=== PATIENT | female | born 1955 | race Caucasian/White ===

== ENCOUNTER 2017-03-01 10:08 | Emergency (ER) | payer BC ==
--- NOTE | 2017-03-01 10:43 | XRAY Preliminary Report ---
Exam: XR CHEST 2 VIEW PA/LAT IMPRESSION: No acute abnormality of the chest. [facility] SITE ID: [id number]
--- NOTE | 2017-03-01 10:46 | XRAY Report ---
EXAM: CHEST RADIOGRAPHY EXAM DATE: 03/01/2017 10:28 AM. CLINICAL HISTORY: Cough, sob. COMPARISON: None. TECHNIQUE: 2 views. FINDINGS: Lungs/Pleura: No focal opacities evident. No pleural effusion. No pneumothorax. Normal volumes. Mediastinum: Heart and mediastinal contours are unremarkable. Other: Lower thoracic dextroconvexity curvature. Mild thoracic spine degenerative disease. IMPRESSION: No acute abnormality of the chest. [facility] Referring Provider Line: [phone] SITE ID: [id number]
[2017-03-01] MEDS ORDERED: ALBUTEROL NEB 2.5 MG/3 ML INH STA (12:27)
[2017-03-01] MEDS ORDERED: DEXAMETHASONE 10 MG/ML VIAL PO STA (12:27)
--- NOTE | 2017-03-01 12:28 | ED Physician Documentation ---
PD HPI URI - Stated complaint Stated Complaint: SOA - Chief complaint Chief Complaint: Resp - History obtained from History obtained from: Patient, Family - History of Present Illness Timing - onset: How many days ago (5) Timing duration: Days (5) Timing details: Gradual onset Pain level max: 0 Pain level now: 0 Associated symptoms: Nasal congestion, Rhinorrhea, Dry cough, Dyspnea (wheezing) . No: Fever, Chills, Hemoptysis, Chest pain, Bilateral edema, Unilateral edema Contributing factors: Sick contact. No: Travel, Immunocompromised, Unimmunized Improves by: Rest Worsened by: Activity, Breathing Similar symptoms before: Diagnosis (bronchitis, pneumonia) Recently seen: Not recently seen Review of Systems Constitutional: denies: Fever, Chills Cardiac: denies: Chest pain / pressure Respiratory: reports: Cough, Wheezing GI: denies: Vomiting Skin: denies: Rash Musculoskeletal: denies: Neck pain, Back pain Neurologic: denies: Headache PD PAST MEDICAL HISTORY - Past Medical History Past Medical History: Yes Cardiovascular: Hypertension Respiratory: Pneumonia HAND COPER: Endometriosis - Past Surgical History General: Other /HAND COPER: Endometrial ablation - Present Medications Home Medications: Ambulatory Orders Medication Instructions Recorded Confirmed Albuterol Sulf [Ventolin Hfa 2 puffs INH Q4HR PRN #1 inhaler 03/01/17 Inhaler] Amlodipine Besylate/Benazepril 1 tab PO DAILY 03/01/17 03/01/17 [Lotrel 10-40 mg Capsule] Benzonatate [Tessalon Perle] 100 - 200 mg PO TID PRN #30 capsule 03/01/17 - Allergies Allergies/Adverse Reactions: Allergies Allergy/AdvReac Type Severity Reaction Status Date / Time Sulfa (Sulfonamide Allergy Hives Verified 03/01/17 10:17 Antibiotics) - Social History Does the pt smoke?: No Smoking Status: Never smoker - Immunizations Immunizations are current?: Yes PD ED PE NORMAL - Vitals Vital signs reviewed: Yes - General General: Alert and oriented X 3, No acute distress, Well developed/nourished - HEENT HEENT: PERRL, Ears normal, Moist mucous membranes, Pharynx benign - Neck Neck: Supple, no meningeal sign - Cardiac Cardiac: RRR, Strong equal pulses - Respiratory Respiratory: No respiratory distress, Other (Diminished breath sounds bilaterally with wheezing) - Abdomen Abdomen: Soft, Non tender, Non distended - Derm Derm: Warm and dry - Extremities Extremities: No edema, No calf tenderness / cord - Neuro Neuro: Alert and oriented X 3 - Psych Psych: Normal mood, Normal affect Results - Vitals Vitals: Vital Signs - 24 hr 03/01/17 03/01/17 03/01/17 10:14 12:50 13:27 Temperature 36.2 C L Heart Rate 90 92 90 Respiratory 16 16 18 Rate Blood Pressure 127/85 H 142/80 H O2 Saturation 96 95 Oxygen O2 Source Room air - Rads (name of study) cxr Radiology: Prelim report reviewed, EMP read contemporaneously, See rad report ( No acute abnormality of the chest. ) PD MEDICAL DECISION MAKING - ED course Complexity details: reviewed results, re-evaluated patient, considered differential, d/w patient, d/w family ED course: Patient is a 61-year-old female who presents to the emergency department what appears to be a viral URI with wheezing. Given nebulizer treatments as well as dexamethasone. Feels significantly improved. Wheezing decreased. No hypoxia. No respiratory distress. Will place on inhalers for home as well as Tessalon Perles. She is well-appearing, nontoxic. Afebrile. No hypoxia. No evidence of pneumonia. Patient counseled regarding signs and symptoms for which I believe and urgent re-evaluation would be necessary. Patient with good understanding of and agreement to plan and is comfortable going home at this time This document was made in part using voice recognition software. While efforts are made to proofread this document, sound alike and grammatical errors may occur. Departure - Departure Disposition: 01 Home, Self Care Clinical Impression: Upper respiratory tract infection Qualifiers: URI type: unspecified viral URI Qualified Code(s): J06.9 - Acute upper respiratory infection, unspecified Condition: Good Instructions: ED URI Viral W Wheezing Follow-Up: your,doctor in 1 week [Other] Prescriptions: Albuterol Sulf [Ventolin Hfa Inhaler] 2 puffs INH Q4HR PRN #1 inhaler PRN Reason: Wheezing Benzonatate [Tessalon Perle] 100 - 200 mg PO TID PRN #30 capsule PRN Reason: Cough Comments: Return if you worsen. This should improve over the next week. There is no pneumonia on your chest xray today. Discharge Date/Time: 03/01/17 13:27
[2017-03-01 13:29] VITALS: BP 142/80
== END 2017-03-01 13:27 | disposition home or self-care (01) ==
LOC: ED 10:08
DX: J06.9 Acute upper respiratory infection, unspecified (principal); B97.89 Other viral agents as the cause of diseases classified elsewhere; I10 Essential (primary) hypertension
CPT/HCPCS: 71020; 93005; 94640; 94664; 99283; J7613